=== PATIENT | male | born 1985 | race Caucasian/White ===

== ENCOUNTER 2017-11-18 18:59 | Emergency (ER) | payer BC ==
[2017-11-18 19:12] VITALS: BP 146/74
--- NOTE | 2017-11-20 18:57 | ER ---
DATE SEEN: 11/18/2017 CHIEF COMPLAINT: Cough. HISTORY OF PRESENT ILLNESS: This is a 32-year-old male with a cough for 2-3 days, associated with sore throat, fever, and chills. REVIEW OF SYSTEMS: No nausea or vomiting. No urinary symptoms. No shortness of breath. PAST MEDICAL HISTORY: No active medical problems. SOCIAL HISTORY: Does not smoke. PHYSICAL EXAMINATION: GENERAL: Nontoxic. VITAL SIGNS: Temperature is normal. Blood pressure is 146/74. Oxygenation 100% on room air. ENT: Mild oropharyngeal erythema. NECK: No thyromegaly. CHEST: Clear. ABDOMEN: Soft. SKIN: No pallor or jaundice. LABORATORY DATA: Strep and influenza negative. IMPRESSION: Upper respiratory infection. TREATMENT: Supportive, fluids, rest, follow up p.r.n. TIME SEEN: 1900 hours. /[id number] 2005 1845 MARY/SAMUEL
== END 2017-11-18 20:11 | disposition home or self-care (01) ==
LOC: FB.ED 18:59
DX: J06.9 Acute upper respiratory infection, unspecified (principal)
CPT/HCPCS: 87081; 87430; 87804; 99283

== ENCOUNTER 2020-09-03 18:32 | Emergency (ER) | payer OTHER ==
[2020-09-03] MEDS ORDERED: Acetaminophen/HYDROcodone 325-5 MG Tab PO ONE (18:33)
[2020-09-03] MEDS ORDERED: Hydrocortisone/Neomycin/Polymyxin B Otic Susp 10 ML Bottle EARBOTH ONE (18:33)
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
[2020-09-03 18:55] VITALS: BP 118/60; PULSE 74
== END 2020-09-03 19:40 | disposition home or self-care (01) ==
LOC: FB.ED 18:32
DX: T20.17XA Burn of first degree of neck, initial encounter (principal); T20.112A Burn of first degree of left ear [any part, except ear drum], initial encounter; H60.592 Other noninfective acute otitis externa, left ear; Z88.5 Allergy status to narcotic agent; Z79.01 Long term (current) use of anticoagulants; X58.XXXA Exposure to other specified factors, initial encounter
CPT/HCPCS: 99283; A9270-GY

== ENCOUNTER 2020-10-23 23:25 | Emergency (ER) | payer OTHER ==
[2020-10-23] MEDS ORDERED: Aspirin 81 MG Tab.Chew PO ONE (23:44)
[2020-10-23] MEDS ORDERED: Sodium Chloride 0.9% 1,000 ML IV SCH (23:45)
[2020-10-24] MEDS ORDERED: Iopamidol 755 Mg/ML 100 ML Bottle IV ONE (00:34)
--- NOTE | 2020-10-24 01:06 | EDM.PDOC ---
ED HPI GENERAL MEDICAL PROBLEM - General Chief Complaint: Chest Pain Stated Complaint: CHEST PAIN; NUMBNESS IN HAND; COVID + Time Seen by Provider: 10/23/20 23:30 Source of Information: Reports: Patient History Limitations: Reports: No Limitations, Language Barrier - History of Present Illness INITIAL COMMENTS - FREE TEXT/NARRATIVE: states he was sitting and watching TV , got upa dn felt sudden chest pain ( left sided) and numbness in both arms that persisted till he came to the ER Had mild [place] , no nausea or vomiting no fever Pt was diagnosed with COVID on Monday ( 4 days ago ) [place] to [place] to get medications today has lost sense of taste and smell Onset: Sudden Onset Date: 10/23/20 Duration: Waxing/Waning Location: Reports: Face Quality: Reports: Ache Severity: Moderate Associated Symptoms: Reports: No Other Symptoms, Headaches Treatments ROUTE SALES SPECIALIST: Reports: Other (see below) (pt was given anticlonal antibody for Covid EARLIER TODAY) - Related Data Allergies Allergy/AdvReac Type Severity Reaction Status Date / Time morphine Allergy Chest Verified 09/03/20 18:44 Tightness Home Meds: Home Meds Acetaminophen [Acetaminophen Extra Strength] 50 mg PO Q4HR PRN 11/18/17 [History] Hydrocodone/Acetaminophen [[place] 5-325 Tablet] 1 - 2 tab PO Q6H PRN #8 tablet 09/03/20 [Rx] Warfarin [Coumadin] 10 mg PO DAILY 09/03/20 [History] Azithromycin [Zithromax] 500 mg PO DAILY #10 tab 10/24/20 [Rx] guaiFENesin [Mucinex] 600 mg PO BID #30 tab.er 10/24/20 [Rx] Past Medical History - Past Health History Medical/Surgical History: Denies Medical/Surgical History Cardiovascular History: Reports: Heart Valve Replacement Other Cardiovascular History: Aortic valve replacement. Hematologic History: Reports: Anticoagulation Therapy - Past Surgical History Cardiovascular Surgical History: Reports: Valve Replacement Neurological Surgical History: Reports: Other (See Below) Other Neurological Surgeries/Procedures: Back surgery, disc. Musculoskeletal Surgical History: Reports: Other (See Below) Other Musculoskeletal Surgeries/Procedures:: Left hand surgery. 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 ED EXAM, GENERAL - Physical Exam Exam: See Below Exam Limited By: No Limitations General Appearance: Alert, WD/WN, No Apparent Distress Eye Exam: Bilateral Eye: EOMI Ears: Normal External Exam Nose: Normal Inspection Throat/Mouth: Normal Inspection, Normal Oropharynx Head: Atraumatic, Normocephalic Neck: Supple, Non-Tender Respiratory/Chest: Chest Non-Tender, Decreased Breath Sounds, Rales, Other (sternal scar noted) Cardiovascular: Normal Peripheral Pulses, Regular Rate, Rhythm, No Edema, No JVD Peripheral Pulses: 2+: Radial (L), Radial (R) GI/Abdominal: Soft, Non-Tender Back Exam: Full Range of Motion Extremities: Normal Range of Motion, Normal Capillary Refill. No: Pedal Edema Neurological: Alert, Oriented, CN II-XII Intact, Normal Cognition, Normal Gait Psychiatric: Normal Affect, Normal Mood Skin Exam: Warm, Dry, Intact, Normal Color Lymphatic: No Adenopathy Course - Vital Signs Last Recorded V/S: Last Vital Signs Temp 36.6 C 10/23/20 23:25 Pulse Resp BP Pulse Ox - Orders/Labs/Meds Orders: Active Orders 24 hr Category Date Time Status EKG Documentation Completion [RC] ASDIRECTED Care 10/23/20 23:33 Active EKG Documentation Completion [RC] ASDIRECTED Care 10/24/20 01:00 Active Ang Chest [CT] Stat Exams 10/23/20 00:38 Taken Sodium Chloride 0.9% [Normal Saline] 1,000 ml Med 10/23/20 23:45 Active IV ASDIRECTED EKG 12 Lead [EK] Routine Ther 10/23/20 23:33 Ordered EKG 12 Lead [EK] Routine Ther 10/24/20 00:59 Ordered Medication Orders Sodium Chloride (Normal Saline) 1,000 mls @ 999 mls/hr IV ASDIRECTED LASHELL Last Admin: 10/24/20 00:00 Dose: 999 mls/hr Documented by: NICOLAS Labs: Laboratory Tests 10/23/20 10/23/20 10/23/20 Range/Units 23:55 23:55 23:55 WBC 9.5 (3.2-10.1) x10-3/uL RBC 5.39 (3.90-5.90) x10(6)uL Hgb 15.1 (12.9-17.7) g/dL Hct 44.2 (38.3-50.1) % MCV 81.9 (80.8-98.7) fL MCH 28.0 (27.0-33.3) pg MCHC 34.2 (28.7-35.3) g/dL RDW 14.6 (12.4-15.0) % Plt Count 168 (117-477) x10(3)uL MPV 9.3 (6.7-11.0) fL Neut % (Auto) 68.4 (40.3-71.8) % Lymph % (Auto) 21.8 (15.8-45.3) % Greene % (Auto) 7.0 (5.5-15.2) % Eos % (Auto) 2.4 (0.1-6.8) % Baso % (Auto) 0.4 (0.3-3.8) % Neut # (Auto) 6.5 (1.7-6.9) x10-3/uL Lymph # (Auto) 2.1 (0.5-4.5) x10-3/uL Greene # (Auto) 0.7 (0.0-1.2) x10-3/uL Eos # (Auto) 0.2 (0.0-0.6) x10-3/uL Baso # (Auto) 0.0 (0.0-0.3) x10-3/uL PT (9.0-11.1) sec INR (1.00-1.24) D-Dimer, Quantitative 0.59 (0.0-0.59) mg/LFEU Sodium 136 (135-145) mmol/L Potassium 3.9 (3.5-5.3) mmol/L Chloride 101 (100-110) mmol/L Carbon Dioxide 23 (21-32) mmol/L BUN 13 (7-18) mg/dL Creatinine 1.0 (0.70-1.30) mg/dL Est Cr Clr Drug Dosing TNP Estimated GFR (MDRD) > 60 (>60) BUN/Creatinine Ratio 13.0 (9-20) Glucose 152 H (80-116) mg/dL Calcium 7.4 L (8.6-10.2) mg/dL Total Bilirubin 0.5 (0.1-1.3) mg/dL AST 33 H (5-25) IU/L ALT 46 H (12-36) U/L Alkaline Phosphatase 98 (56-112) IU/L Troponin I (4.0-60.3) pg/mL Total Protein 7.5 (6.0-8.0) g/dL Albumin 3.9 (3.5-5.2) g/dL Globulin 3.6 g/dL Albumin/Globulin Ratio 1.1 10/23/20 10/23/20 Range/Units 23:55 23:55 WBC (3.2-10.1) x10-3/uL RBC (3.90-5.90) x10(6)uL Hgb (12.9-17.7) g/dL Hct (38.3-50.1) % MCV (80.8-98.7) fL MCH (27.0-33.3) pg MCHC (28.7-35.3) g/dL RDW (12.4-15.0) % Plt Count (117-477) x10(3)uL MPV (6.7-11.0) fL Neut % (Auto) (40.3-71.8) % Lymph % (Auto) (15.8-45.3) % Greene % (Auto) (5.5-15.2) % Eos % (Auto) (0.1-6.8) % Baso % (Auto) (0.3-3.8) % Neut # (Auto) (1.7-6.9) x10-3/uL Lymph # (Auto) (0.5-4.5) x10-3/uL Greene # (Auto) (0.0-1.2) x10-3/uL Eos # (Auto) (0.0-0.6) x10-3/uL Baso # (Auto) (0.0-0.3) x10-3/uL PT 18.9 H (9.0-11.1) sec INR 1.82 H (1.00-1.24) D-Dimer, Quantitative (0.0-0.59) mg/LFEU Sodium (135-145) mmol/L Potassium (3.5-5.3) mmol/L Chloride (100-110) mmol/L Carbon Dioxide (21-32) mmol/L BUN (7-18) mg/dL Creatinine (0.70-1.30) mg/dL Est Cr Clr Drug Dosing Estimated GFR (MDRD) (>60) BUN/Creatinine Ratio (9-20) Glucose (80-116) mg/dL Calcium (8.6-10.2) mg/dL Total Bilirubin (0.1-1.3) mg/dL AST (5-25) IU/L ALT (12-36) U/L Alkaline Phosphatase (56-112) IU/L Troponin I 9.2 (4.0-60.3) pg/mL Total Protein (6.0-8.0) g/dL Albumin (3.5-5.2) g/dL Globulin g/dL Albumin/Globulin Ratio Meds: Medications Generic Name Dose Route Start Last Admin Trade Name Freq PRN Reason Stop Dose Admin Sodium Chloride 1,000 mls @ 999 mls/hr 10/23/20 23:45 10/24/20 00:00 Normal Saline IV 999 mls/hr ASDIRECTED LASHELL Administration Discontinued Medications Generic Name Dose Route Start Last Admin Trade Name Freq PRN Reason Stop Dose Admin Aspirin 324 mg 10/23/20 23:44 10/24/20 00:05 Aspirin PO 10/23/20 23:45 324 mg ONETIME ONE Administration Iopamidol 100 ml 10/24/20 00:34 Isovue-370 (76%) IV 10/24/20 00:35 ONETIME ONE - Re-Assessments/Exams Free Text/Narrative Re-Assessment/Exam: 10/24/20 01:00 had EKG , labs done , CT chest done ( + COVID) given aspirin , pt is allergic to morphine Repeat EKG Troponin is negative 10/24/20 01:19 Repeat EKG showed no changes chest pain has resolved, still has nubness and tingling in the fingers pt is taking Anti COVID antiviral Departure - Departure Time of Disposition: 01:30 Disposition: Home, Self-Care 01 Condition: Fair Clinical Impression: Chest pain due to coronary artery disease, Atypical chest pain, H/O aortic valve replacement, Pneumonia due to COVID-19 virus Referrals: Ovi Parker MD [Primary Care Provider] - Forms: ED Department Discharge Sepsis Event Note (ED) - Evaluation Sepsis Screening Result: No Definite Risk - Focused Exam Vital Signs: Vital Signs Temp 10/23/20 23:25 36.6 C - My Orders Last 24 Hours: My Active Orders 10/23/20 00:38 Ang Chest [CT] Stat 10/23/20 23:33 EKG Documentation Completion [RC] ASDIRECTED EKG 12 Lead [EK] Routine 10/23/20 23:45 Sodium Chloride 0.9% [Normal Saline] 1,000 ml IV ASDIRECTED 10/24/20 00:59 EKG 12 Lead [EK] Routine 10/24/20 01:00 EKG Documentation Completion [RC] ASDIRECTED - Assessment/Plan Last 24 Hours: My Active Orders 10/23/20 00:38 Ang Chest [CT] Stat 10/23/20 23:33 EKG Documentation Completion [RC] ASDIRECTED EKG 12 Lead [EK] Routine 10/23/20 23:45 Sodium Chloride 0.9% [Normal Saline] 1,000 ml IV ASDIRECTED 10/24/20 00:59 EKG 12 Lead [EK] Routine 10/24/20 01:00 EKG Documentation Completion [RC] ASDIRECTED
[2020-10-24] MEDS ORDERED: Azithromycin 250 MG Tab PO STA (01:17)
== END 2020-10-24 01:50 | disposition home or self-care (01) ==
LOC: FB.ED 23:25
DX: U07.1 COVID-19 (principal); J12.82 Pneumonia due to coronavirus disease 2019; I25.10 Atherosclerotic heart disease of native coronary artery without angina pectoris; Z98.890 Other specified postprocedural states; Z88.5 Allergy status to narcotic agent; Z79.01 Long term (current) use of anticoagulants
CPT/HCPCS: 36415; 71275; 80053; 84484; 85025; 85379; 85610; 93005; 99285; A9270; J7030; Q9967

== ENCOUNTER 2021-02-06 12:04 | Emergency (ER) | payer OTHER ==
[2021-02-06 12:29] VITALS: BP 154/90; PULSE 74
--- NOTE | 2021-02-06 12:42 | EDM.PDOC ---
ED HPI GENERAL MEDICAL PROBLEM - General Chief Complaint: ENT Problem Stated Complaint: BLOODY NOSE Time Seen by Provider: 02/06/21 12:20 Source of Information: Reports: Patient, Family History Limitations: Reports: No Limitations - History of Present Illness INITIAL COMMENTS - FREE TEXT/NARRATIVE: c/o nosebleed onset on awakening today, has continued to drip, including down his throat, no trauma on warfarin and ASA x 1y since AVR at [facility] feeling well otherwise, here with works maintenance at [employer], off duty today and tomorrow for the weekend slight nose bleed 3y ago, no other nosebleeds since AVR - Related Data Allergies Allergy/AdvReac Type Severity Reaction Status Date / Time morphine Allergy Chest Verified 02/06/21 12:31 Tightness, Itching Home Meds: Home Meds Warfarin [Coumadin] 5 mg PO ASDIRECTED 10/24/20 [History] Past Medical History - Past Health History Medical/Surgical History: Denies Medical/Surgical History Cardiovascular History: Reports: Heart Valve Replacement Other Cardiovascular History: Aortic valve replacement. Hematologic History: Reports: Anticoagulation Therapy - Past Surgical History Cardiovascular Surgical History: Reports: Valve Replacement Neurological Surgical History: Reports: Other (See Below) Other Neurological Surgeries/Procedures: Back surgery, disc. Musculoskeletal Surgical History: Reports: Other (See Below) Other Musculoskeletal Surgeries/Procedures:: Left hand surgery. 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[employer].) ED ROS ENT - Review of Systems Review Of Systems: See Below Constitutional: Reports: No Symptoms HEENT: Reports: Nosebleed Respiratory: Reports: No Symptoms Endocrine: Reports: No Symptoms GI/Abdominal: Reports: No Symptoms : Reports: No Symptoms Musculoskeletal: Reports: No Symptoms Skin: Reports: No Symptoms Neurological: Reports: No Symptoms Psychiatric: Reports: No Symptoms Hematologic/Lymphatic: Reports: No Symptoms Immunologic: Reports: No Symptoms ED EXAM, ENT - Physical Exam Exam: See Below Exam Limited By: No Limitations General Appearance: Alert, WD/WN, No Apparent Distress Nose: Other (L nares clear, R nares with occasional small amount of blood, Kiesselbach's plexus appears intact, minimal mucosal edema, o-p neg) Course - Vital Signs Last Recorded V/S: Last Vital Signs Temp 35.7 C L 02/06/21 12:04 Pulse 74 02/06/21 12:04 Resp 20 02/06/21 12:04 BP 154/90 H 02/06/21 12:04 Pulse Ox 99 02/06/21 12:04 - Orders/Labs/Meds Orders: Active Orders 24 hr Category Date Time Status CBC WITH AUTO DIFF [HEME] Stat Lab 02/06/21 12:25 Received INR,PT,PROTHROMBIN TIME [COAG] Stat Lab 02/06/21 12:25 Received - Re-Assessments/Exams Free Text/Narrative Re-Assessment/Exam: 02/06/21 12:43 5.5 cm Rhinorocket placed in R nares without difficulty, 3 ml air inflated, taped in place, no subsequent bleeding, no pain, minimal pressure Departure - Departure Time of Disposition: 13:57 Disposition: Home, Self-Care 01 Condition: Good Clinical Impression: Acute anterior epistaxis, Anticoagulant long-term use - Discharge Information *PRESCRIPTION DRUG MONITORING PROGRAM REVIEWED*: Not Applicable *COPY OF PRESCRIPTION DRUG MONITORING REPORT IN PATIENT GOPI: Not Applicable Instructions: Nosebleed, Adult Additional Instructions: Check with the warfarin clinic in 2 days (Monday) regarding any adjustments in the dose of warfarin and when you need the INR rechecked. See your doctor in 2 days to remove balloon. Ask your doctor whether both the aspirin and warfarin should be continued. If you have additional bleeding or the balloon become uncomfortable, return to the Emergency Department. Call if any questions. Sepsis Event Note (ED) - Evaluation Sepsis Screening Result: No Definite Risk - Focused Exam Vital Signs: Vital Signs Temp Pulse Resp BP Pulse Ox 02/06/21 12:04 35.7 C L 74 20 154/90 H 99 - My Orders Last 24 Hours: My Active Orders 02/06/21 12:25 CBC WITH AUTO DIFF [HEME] Stat INR,PT,PROTHROMBIN TIME [COAG] Stat - Assessment/Plan Last 24 Hours: My Active Orders 02/06/21 12:25 CBC WITH AUTO DIFF [HEME] Stat INR,PT,PROTHROMBIN TIME [COAG] Stat
== END 2021-02-06 13:10 | disposition home or self-care (01) ==
LOC: FB.ED 12:04
DX: R04.0 Epistaxis (principal); Z79.01 Long term (current) use of anticoagulants; Z88.5 Allergy status to narcotic agent
CPT/HCPCS: 30903; 36415; 85025; 85610; 99283-25

== ENCOUNTER 2022-09-13 17:44 | Emergency (ER) | payer OTHER ==
[2022-09-13 18:20] LABS: ESTIMATED GFR 89 mL/min (>60)
[2022-09-13 18:22] VITALS: BP 134/95; PULSE 78
== END 2022-09-13 19:05 | disposition home or self-care (01) ==
LOC: FB.ED 17:44
DX: R07.89 Other chest pain (principal); Z88.6 Allergy status to analgesic agent; Z79.899 Other long term (current) drug therapy; Z79.01 Long term (current) use of anticoagulants
CPT/HCPCS: 36415; 80053; 84484; 85025; 85379; 85610; 93005; 99285

== ENCOUNTER 2024-10-20 01:37 | Emergency (ER) | payer OTHER ==
[2024-10-20 02:04] LABS: BASOPHILS PERCENT AUTO 0.4 % (0.3-3.8); BLOOD UREA NITROGEN,BUN 20 mg/dL (7-18); BUN/CREATININE RATIO 18.2 (9-20); CALCIUM 8.9 mg/dL (8.6-10.2); CARBON DIOXIDE,CO2 25 mmol/L (21-32); CHLORIDE,CL 103 mmol/L (100-110); CREATININE 1.1 mg/dL (0.70-1.30); EOSINOPHILS ABSOLUTE AUTO 0.3 x10-3/uL (0.0-0.6); EST CRCL DRUG DOSING (CG) 101.89 mL/min; ESTIMATED GFR 88 mL/min (>60); GLUCOSE RANDOM 143 mg/dL (80-116); HEMATOCRIT 42.5 % (38.3-50.1); HEMOGLOBIN 14.8 g/dL (12.9-17.7); LYMPHOCYTES ABSOLUTE AUTO 1.5 x10-3/uL (0.5-4.5); LYMPHOCYTES PERCENT AUTO 21.9 % (15.8-45.3); MEAN CORPUSCULAR HEMOGLOBIN 29.7 pg (27.0-33.3); MEAN CORPUSCULAR HGB CONC 34.8 g/dL (28.7-35.3); MEAN CORPUSCULAR VOLUME 85.4 fL (80.8-98.7); MEAN PLATELET VOLUME 9.6 fL (6.7-11.0); MONOCYTES ABSOLUTE AUTO 0.7 x10-3/uL (0.0-1.2); MONOCYTES PERCENT AUTO 10.3 % (5.5-15.2); NEUTROPHILS ABSOLUTE AUTO 4.3 x10-3/uL (1.7-6.9); NEUTROPHILS PERCENT AUTO 63.4 % (40.3-71.8); PLATELET COUNT,PLT 158 x10(3)uL (117-477); POTASSIUM,K 3.7 mmol/L (3.5-5.3); RED BLOOD CELL COUNT 4.98 x10(6)uL (3.90-5.90); RED CELL DISTRIBUTION WIDTH 14.3 % (12.4-15.0); SODIUM,NA 141 mmol/L (135-145); WHITE BLOOD CELL COUNT,WBC 6.8 x10-3/uL (3.2-10.1)
[2024-10-20] MEDS ORDERED: Sodium Chloride 0.9% 10 ML Syringe FLUSH PRN (02:07)
[2024-10-20 02:10] LABS: A/G RATIO 1.3; ALANINE AMINOTRANSFERASE,ALT 34 U/L (12-36); ALBUMIN 3.9 g/dL (3.5-5.2); ALKALINE PHOSPHATASE 109 IU/L (56-112); ASPARTATE AMNIOTRANSFERASE,AST 16 IU/L (5-25); BILIRUBIN TOTAL 0.4 mg/dL (0.1-1.3); INR 1.49 (1.00-1.24)
[2024-10-20 04:51] VITALS: PULSE 56
[2024-10-20 05:43] VITALS: BP 101/63
== END 2024-10-20 05:35 | disposition home or self-care (01) ==
LOC: FB.ED 01:37
DX: R07.89 Other chest pain (principal); Z88.5 Allergy status to narcotic agent; Z79.01 Long term (current) use of anticoagulants; Z79.899 Other long term (current) drug therapy
CPT/HCPCS: 36415; 71045; 80053; 84484; 85025; 85610; 93005; 93010; 99283; 99285